=== PATIENT | male | born 1990 | race Caucasian/White ===

== ENCOUNTER 2017-09-16 10:03 | Emergency (ER) | payer SELFPAY ==
[2017-09-16 14:08] LABS: #Eosinphils 0.2 thou/uL (0.0-0.7); #Lymphocytes 2.5 thou/uL (1.20-3.40); #Monocytes 0.6 thou/uL (0.11-0.59); %Basophils 0.7 % (0.0-1.0); %Eosinophils 2.1 % (0.0-10.0); %Lymphocytes 34.3 % (21.0-51.0); %Monocytes 8.8 % (0.0-10.0); %Neutrophils 54.2 % (42.0-75.0); Mean Corpuscular HGB CONC 34.6 g/dL (32.0-36.0); Mean Corpuscular Hemoglobin 31.2 pg (27.0-31.0); Mean Corpuscular Volume 90.3 fl (80.0-94.0); Platelet Count 180 thou/uL (130-400); RBC Distribution Width 11.7 % (11.5-14.5); White Blood Cell (WBC) Count 7.3 thou/uL (4.8-10.8)
[2017-09-16] MEDS ORDERED: Meclizine HCl 25 MG TAB ONE (14:10)
[2017-09-16 14:37] LABS: ALT (SGPT) 80 U/L (8-55); AST (SGOT) 54 U/L (5-34); Albumin 4.3 g/dL (3.5-5.0); Alkaline Phosphatase 61 U/L (40-150); Anion Gap 9 mmol/L (10-20); BUN (Urea Nitrogen) 10 mg/dL (8.9-20.6); Bilirubin, Total 0.6 mg/dL (0.2-1.2); Calc. Creatinine Clearance 0 mL/min (70-130); Calcium 9.6 mg/dL (7.8-10.44); Carbon Dioxide 30 mmol/L (22-29); Chloride 101 mmol/L (98-107); Estimated GFR-MDRD 83; Globulin 3.1 g/dL (2.4-3.5); Glucose 180 mg/dL (70-105); Lipase 13 U/L (8-78); Potassium 3.8 mmol/L (3.5-5.1); Protein, Total 7.4 g/dL (6.0-8.3); Sodium 136 mmol/L (136-145)
== END 2017-09-16 15:15 | disposition home or self-care (01) ==
LOC: ERS 10:03
DX: H65.91 Unspecified nonsuppurative otitis media, right ear (principal); R42 Dizziness and giddiness
CPT/HCPCS: 36415; 36416; 80053; 83690; 85025; 99283